=== PATIENT | male | born 1945 | race Caucasian/White ===

== ENCOUNTER 2016-05-22 10:45 | Day surgery (SDC) | payer MEDICARE ==
[~2016-05-22] VITALS: Ht 188 cm; Wt 93.7 kg
[2016-05-22] VITALS (7 sets, daily range): BP systolic 105–132; BP diastolic 59–70; PULSE 52–64; RESP 8–18; O2SAT 97–100
--- NOTE | 2016-05-22 06:38 | PCM.HPANE ---
Patient Data Surgeon Admitting Provider: Attending Provider:Liseth Rothman MD Primary Care Physician:Robyn Jiménez MD Other Provider:Yesika Hernandez Anesthesia Reason for Visit Urinary Retention Ht/WT & BMI Height (Feet): 6 Height (Inches): 2 Weight (Kilograms): 93.71 Body Mass Index 26.00 Allergies Coded Allergies: grass pollen (Unverified Allergy, Unknown, 05/19/16) pollen extracts (Unverified Allergy, Unknown, 05/19/16) Past Anesthesia History Anesthesia History: Denies:: Anesthesia Reactions Medications Reported Medications Tamsulosin (Flomax)0.4 Mg Capsule0.4 Mg PO DAILY Ref 0 05/19/16 History History of ENT Problems?: No Hx of Heart Problems?: No Hx of Respiratory Problem?: No Respiratory History: Denies:: Asthma COPD Emphysema Oxygen Administration Use of C-PAP Machine Hx Neurologic Problems?: No Hx of GI Problems?: No Hx of Problems?: Yes Genitourinary History: Denies:: Kidney Stones Urinary Tract Infection Other Pertinent History: urinary retention current admission problem Male Hx: Positive for:: Prostate Problems (urinary retention) Skin History: Denies:: History Skin Disorders? Pressure Ulcers Hx Musculoskeletal Problems?: No Hx of Psycho/Social Problems?: No Hx Surgeries?: Yes (tonsil) Hx Any Other Health Problems?: Yes Other History: Denies:: Cancer (last Hgb A1C 01/2016= 5.5) Stop/Bang P-Blood Pressure: treated: No B- Body Mass Index > 35 kg/m2: No A- Age over 50: Yes N- Neck Large Circumference: No G- Gender Male: Yes Risk Assessment Category Category 1A: Patient has history of documented sleep apnea, and HAS NOT received any narcotic, sedative or anesthesia administration during this stay. Category 1B: Patient has history of documented sleep apnea, and HAS received any narcotic , sedative or anesthesia administration during this stay Category 2: Patient has SUSPECTED Obstructive Sleep Apnea, and HAS received any narcotic , sedative or anesthesia administration during this stay. Category 3: Patient has SUSPECTED Obstructive Sleep Apnea and HAS NOT received narcotic, sedative or anesthesia administration during this stay. Category 4: Outpatient in Procedural Areas with known sleep apnea or who screen positive for High Risk via the STOP/BANG questionnaire. Exam Exam General Appearance: Alert, Oriented X3, Cooperative HEENT/AIRWAY: MP 2, Neck Movement (FROM), Mouth Opening (WNL) Lungs: Clear to Auscultation Heart: Exam Unremarkable Plan Impression Patient chart reviewed, patient interviewed and anesthestic plan with risks, benefits, and alternatives discussed, and informed consent obtained. ASA Physical Status: ASA2 Mod Systemic Disease Anesthetic Plan: GA Bene/Risks/Altern/Consents: Yes HP Complete Prior to Induction: Yes Tommie Chow MD May 22, 2016 06:38
[~2016-05-22 10:45] MED LIST: CeFAZolin Inj 2 GM in IV Premix 1 EACH IV ONE; Lactated Ringer's 1,000 ML IV ONE; TAMS0.4C98 PO
[2016-05-22] MEDS ORDERED: Ondansetron 2 mg/mL 2 mL Inj ONE (10:46)
[2016-05-22] MEDS ORDERED: Propofol 10,000 mCg/mL 20 mL Inj ONE (10:46)
[2016-05-22] MEDS ORDERED: fentaNYL-PF 50 mCg/mL 2 mL Inj ONE (10:46)
[2016-05-22] MEDS ORDERED: CeFAZolin Inj 2 gm / 50mL D5W IV ONE (11:43)
[2016-05-22] MEDS ORDERED: Lactated Ringer's 1,000 ML IV ONE ×2 (12:09→16:12)
[2016-05-22] MEDS ORDERED: Lactated Ringer's 1,000 ML IV SCH (15:23)
[2016-05-22] MEDS ORDERED: Lactated Ringer's 500 ML IV PRN (15:23)
[2016-05-22] MEDS ORDERED: Atropine 0.4 mg/mL Inj IVPUSH PRN (15:25)
[2016-05-22] MEDS ORDERED: hydrALAZINE 20 mg/mL Inj IVPUSH PRN (15:25)
[2016-05-22] MEDS ORDERED: fentaNYL-PF 50 mCg/mL 2 mL Inj IVPUSH PRN (15:25)
[2016-05-22] MEDS ORDERED: Labetalol 5 mg/mL 4 mL Inj IV PRN (15:25)
[2016-05-22] MEDS ORDERED: Phenylephrine 10,000 mCg/mL Inj IVPUSH PRN (15:25)
[2016-05-22] MEDS ORDERED: EPHEDrine Sulfate 50 mg/mL Inj IVPUSH PRN (15:25)
[2016-05-22] MEDS ORDERED: HYDROmorphone 1 mg/mL Inj IVPUSH PRN (15:25)
[2016-05-22] MEDS ORDERED: Ondansetron 2 mg/mL 2 mL Inj IVPUSH PRN (15:25)
[2016-05-22] MEDS ORDERED: Dexamethasone 4 mg/mL Inj IVPUSH PRN (15:25)
[2016-05-22] MEDS ORDERED: HYDROcodone-APAP 5-325 mg Tablet PO PRN (16:20)
--- NOTE | 2016-05-22 16:38 | PCM.ANEP1 ---
Post Anesthesia Phase 1 PACU Phase 1 Assessment Date of Service: May 22, 2016 Vital Signs Vital Signs Date Time Temp Pulse Resp B/P Pulse Ox O2 Delivery O2 Flow Rate FiO2 05/22/16 16:30 64 9 111/67 98 Simple Mask 8 05/22/16 16:25 62 9 107/61 97 Simple Mask 8 05/22/16 16:20 36.3 62 8 117/63 97 Simple Mask 8 05/22/16 11:57 35.8 57 17 132/70 100 Room Air Level of Alertness: Drowsy, not talking SIMPSON's with Equal Strength: Yes Pain: No Nausea or Vomiting: No Airway Device: LMA Oxygen Delivery: Simple Mask (6l through LMA) Lungs: Clear to Auscultation Dermatome Level: Full Sensation Wilfred Boyd DO May 22, 2016 16:38
--- NOTE | 2016-05-22 17:37 | PCM.ANEP2 ---
Post Anesthesia Evaluation ASA/CMS Post Anesthesia Date of Service: May 22, 2016 VS in Patient's Normal Range?: Yes Resp Stable; Airway Patent?: Yes CV Function & Hydration Stable: Yes Mental Status Recovered?: Yes Pain control Satisfactory?: Yes N/V Control Satisfactory?: Yes Wilfred Boyd DO May 22, 2016 17:37
--- NOTE | 2016-05-23 01:22 | OP ---
[address] [address] OPERATIVE REPORT PATIENT: HERMINIO ANAND : 1945 MR#: [id number] ADMIT: 05/22/2016 JOB ID: [id number] DATE OF SURGERY: 05/22/2016 PREOPERATIVE DIAGNOSIS(ES): Urinary retention. POSTOPERATIVE DIAGNOSIS(ES): Urinary retention. PROCEDURE PERFORMED: 1. Cystoscopy. 2. Transurethral resection of prostate. SURGEON: Liseth Rothman MD LIQUID CHLORINE OPERATOR: None. FINDINGS: 1. Trilobar prostatic hypertrophy. 2. +4 trabeculation with multiple diverticula. 3. Bilateral orthotopic ureteral orifices. ANESTHESIA: General. ESTIMATED BLOOD LOSS: Less than 10 mL. DRAINS: An 18-Russian coude catheter. SPECIMEN: Prostate chips. COMPLICATIONS: None. CONDITION: Stable. INDICATIONS FOR THE PROCEDURE: The patient is a 70-year-old gentleman with consistently elevated postvoid residuals in the 500s range. On cystoscopy, he was found to have a bladder consistent with bladder outlet obstruction with severe trabeculation and multiple diverticula. He now presents for transurethral resection of prostate. DESCRIPTION OF PROCEDURE: After informed consent was obtained, the patient was taken to the operating room. A time-out was performed, identifying correct patient, surgical site, and procedure. General anesthesia was smoothly induced. He was placed in the lithotomy position and all pressure points were identified and appropriately padded. His genitals were then prepped and draped in a sterile fashion. A 26-Russian resectoscope was then applied to the patient's urethra and advanced to the bladder. The bladder was then drained. The ureteral orifices was seen in orthotopic position. Resection commenced from the bladder neck to just proximal to the verumontanum. The left lobe was quite lobular as well as the right. The left side was much more significant. There was an intravesical lobe that fell into the field after resection of the transurethral aspect of the prostate. All lobes were resected and at the end of the procedure, there was a nice open channel in the urethra. Every diverticula was inspected at the end of the procedure to ensure that all the chips had been drained from the bladder. The ureteral orifices were left undisturbed. The Ellik had been used multiple times during the procedure to remove any prostate chips. An 18-Russian coude catheter was then placed in the patient's bladder and insufflated with 20 cc of sterile water. It was set to dependent drainage. The patient was then reversed from general anesthesia and taken to the PACU in stable condition. LINN
--- NOTE | 2016-05-24 12:27 | PATH ---
SURGICAL PATHOLOGY Attending Physician:Liseth Rothman, CASE STATUS: Signed Out PATIENT NAME: HERMINIO ANAND PID: [id number] : 1945 DATE COLLECTED:05/22/2016 21:56 SPECIMEN: Prostate, Chips CLINICAL HISTORY: URINARY RETENTION 1). PROSTATE CHIPS FINAL DIAGNOSIS: 1.PROSTATE CHIPS (TRANSURETHRAL RESECTION, 7.3 GRAMS): NODULAR HYPERPLASIA OF GLANDS AND STROMA, NEGATIVE FOR ATYPIA. ICD10 CODE N40.1 GROSS DESCRIPTION: The specimen is received in one formalin filled container labeled with the patient's name, sublabeled "prostate chips" and consists of multiple portions of tissue which aggregate to 5.0 x 4.0 x 1.4 CM. The specimen weighs 7.3 g in total. The specimen is entirely submitted in 6 cassettes. 05/22/2016 [facility] MICRO DESCRIPTION: See diagnosis. ICD-9 CODES: CPT CODES: 1: 05827 Electronically Signed Out Clemente Lara MD [facility] [address], [place] [address] Technical component performed at [facility], [address] [place] [address] Ave[address], [place], [address]
== END 2016-05-22 23:59 | disposition home or self-care (01) ==
LOC: SAS 10:45
PROVIDERS: ATTEND Urology
DX: N40.1 Benign prostatic hyperplasia with lower urinary tract symptoms (principal); R33.9 Retention of urine, unspecified; K57.90 Diverticulosis of intestine, part unspecified, without perforation or abscess without bleeding; R35.0 Frequency of micturition; N30.91 Cystitis, unspecified with hematuria; G60.0 Hereditary motor and sensory neuropathy; Z87.891 Personal history of nicotine dependence
CPT/HCPCS: 52601; 88305; J0690; J2405; J3010; J7120